=== PATIENT | male | born 1995 | race African-American/Black ===

== ENCOUNTER 2024-10-05 18:16 | Emergency (ER) | payer MEDICAID, SELFPAY ==
[2024-10-05] VITALS (34 sets, daily range): BP systolic 160–193; BP diastolic 111–134; PULSE 101–110; RESP 18; TEMP 36.8; O2SAT 98–100
--- NOTE | ~2024-10-05 | XR_ITS ---
EXAMINATION: XR chest 2V DATE: 10/05/2024 19:41 INDICATION: Shortness of breath TECHNIQUE: PA and lateral views of the chest were obtained. COMPARISON: None FINDINGS: The lungs are clear with no focal airspace opacities, pulmonary edema, pleural effusion or pneumothor ax. The cardiomediastinal silhouette is normal. Visualized bones and soft tissues are unremarkable. IMPRESSION: 1. No acute cardiopulmonary disease. Reviewed, dictated and finalized at location A.
--- NOTE | 2024-10-05 18:21 | ED_ITS ---
HPI - Extremity Problem General Chief complaint: Extremity Problem,Nontraumatic Stated complaint: edema to feet Time Seen by Provider: 10/05/24 18:18 Source: patient Mode of arrival: ambulatory Limitations: no limitations History of Present Illness HPI Narrative: patient is a 29-year-old male with right neck pain and headache since starting nitroglycerin daily and recent CHF diagnosis due to hypertension. His EF on paperwork is 35%. No chest pain or shortness of breath. Elevated blood pressure since starting new hydralazine at a lower dose. He is having lower extremity swelling bilateral edema starting today. He is on Lasix. Patient is a chronic renal non dialysis patient. 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) Related Data Home Medications ?Medication ?Instructions ?Recorded ?Confirmed ?Last Taken ?Type aspirin 81 mg tablet,delayed 81 mg PO DAILY 10/05/24 10/05/24 History release (Adult Aspirin Regimen) furosemide 20 mg tablet (Lasix) 20 mg PO DAILY 10/05/24 10/05/24 History hydralazine 25 mg tablet 25 mg PO TID 10/05/24 10/05/24 History isosorbide dinitrate 10 mg tablet 10 mg PO TID 10/05/24 10/05/24 History Allergies Allergy/AdvReac Type Severity Reaction Status Date / Time No Known Allergies Allergy Verified 10/05/24 18:25 Review of Systems 2 Review of Systems: All systems reviewed & are unremarkable except as noted in HPI and below Constitutional: Constitutional: Reports no additional constitutional complaints Eyes: Eyes: Reports no additional eye complaints ENT: Reports system reviewed and no additional complaints, except as documented Cardiovascular: Cardiovascular: Reports no additional cardiovascular complaints Respiratory: Respiratory: Reports no additional respiratory complaints Gastrointestinal: Gastrointestinal: Reports no additional gastrointestinal complaints Genitourinary: Genitourinary: Reports no additional male genitourinary complaints Musculoskeletal: Musculoskeletal: Reports no additional musculoskeletal complaints Integumentary/Breasts: Skin/Breast: Reports system reviewed and no additional complaints, except as docu Neurologic: Reports system reviewed and no additional complaints, except as documented Psychiatric: Psychiatric: Reports no additional psychiatric complaints Endocrine: Endocrine: Reports no additional endocrine complaints Hematologic/Lymphatic: Hematologic/Lymphatic: Reports no additional hematologic/lymphatic complaints Allergic/Immunologic: Allergic/Immunologic: Reports no additional allergic/immunologic complaints Exam 2 Const: General: healthy appearing Nutritional Appearance: well nourished Orientation/consciousness: patient oriented x3 HENMT: Head: normal to inspection Ears: external ears normal F merced/Nose/Sinus: Normal external nose present Eyes: Conjunctivae: conjunctivae normal Pupils: Equal, round and reactive pupils present EOM: EOMs intact bilaterally Neck: Neck: normal visual inspection Chest: Chest palpation & inspection: normal inspection of the chest Resp: Effort & Inspection: normal respiratory effort and not labored A uscultation: clear to auscultation bilaterally and no crackles Cardio: Rate: regular rate Rhythm: regular rhythm Heart sounds: no murmurs Other: there is a 3rd heart sound which could include S3 or P2 split GI: Inspection: non-distended GI Palp: Yes Soft to palpation and No Tenderness to palpation present (GI) Auscultation: normal bowel sounds : General: Yes bladder normal to palpation Back/Spine/Pelvis: Back: no CVA tenderness Skin: General skin exam: normal color Rashes: no rashes Wounds: no wounds Neuro: General: patient oriented x3, moves all extremities, no meningeal signs, no focal motor deficits and CN's II-XI intact bilaterally Cranial nerves: Yes Nystagmus not present Speech: normal speech Gait exam (Neuro): Normal gait present Extrem: General: normal to inspection and edema bilateral Psych: Mental Status: mental status grossly normal Affect: normal affect Attitude: cooperative Course Vital Signs Vital signs: Vital Signs Temperature 36.8 C 10/05/24 18:16 Pulse Rate 110 H 10/05/24 18:16 Respiratory Rate 18 10/05/24 18:16 Blood Pressure 189/134 H 10/05/24 18:16 Pulse Oximetry 98 10/05/24 18:16 Oxygen Delivery Room Air 10/05/24 18:16 Temperature 36.8 C 10/05/24 18:16 Pulse Rate 101 H 10/05/24 19:37 Respiratory Rate 18 10/05/24 19:37 Blood Pressure 193/119 H 10/05/24 19:37 Pulse Oximetry 99 10/05/24 19:37 Oxygen Delivery Room Air 10/05/24 19:37 MDM - Extremity (Nontraumatic) MDM Narrative Medical decision making narrative: patient is a 29-year-old male with new onset CHF in the past week at a different facility and was started on new medication. He is here with a right neck and head pain for the past week after starting nitro as well as lower extremity edema of the ankle starting today. We will do a cardiac workup at this time. after treating his blood pressure, his headache and neck pain have decreased. His elevated values are better than his epic chart findings from his recent hospitalization and they are trending downward comparative today. EKG was also compared and it is exactly the same from last week. Medical Records Attestation: I reviewed the patient's medical records. Medical records narrative: Patient has is my chart on [facility] from hospitalization which shows a normal stress test with EF 32% as well as echocardiogram with similar findings, troponin was more elevated than today, BNP was more elevated than today, renal function was more elevated than today and chest x-ray showed edema as today does not show edema in the lungs. EKG compared looks exactly the same. Lab Data Attestation: I reviewed the patient's lab results. 10/05/24 19:15 10/05/24 19:15 Labs: Lab Results 10/05/24 10/05/24 Range/Units 19:15 21:32 WBC 5.4 (4.8-10.8) K/mm3 RBC 4.61 L (4.70-6.10) M/mm3 Hgb 13.9 L (14.0-18.0) g/dL Hct 40.4 (40.0-54.0) % MCV 87.6 (78.0-102.0) fL MCH 30.2 (27.0-31.0) pg MCHC 34.4 (32-36) g/dL RDW 12.8 (11.6-14.4) % Plt Count 349 (150-420) K/mm3 MPV 9.2 (8.7-11.0) fl Immature Gran % (Auto) 0.2 H (0.0-0.0) % Neut % (Auto) 56.2 (50.0-70.0) % Lymph % (Auto) 33.3 (18.0-42.0) % Payne % (Auto) 7.4 (2.0-11.0) % Eos % (Auto) 2.0 (1.0-6.0) % Baso % (Auto) 0.9 (0.0-1.0) % Lymph # (Auto) 1.81 (1.10-4.50) K/mm3 Payne # (Auto) 0.40 (0.10-0.90) K/mm3 Eos # (Auto) 0.11 (0.02-0.50) K/mm3 Baso # (Auto) 0.05 (0.00-0.10) K/mm3 Abs Immat Gran (auto) 0.01 H (0.00-0.00) K/mm3 Absolute Neuts (auto) 3.05 (1.70-7.20) K/mm3 Absolute Nucleated RBC 0.00 (0.00-0.00) K/mm3 Nucleated RBC % 0.0 (0-0.0) % Sodium 138 (137-145) mmol/L Potassium 4.1 (3.4-5.0) mmol/L Chloride 100 (98-107) mmol/L Carbon Dioxide 31 H (22-30) mmol/L Anion Gap 7 (4-12) mmol/L BUN 24 H (9-20) mg/dL Creatinine 1.93 H (0.7-1.3) mg/dL Estim Creat Clear Calc 48 ml/min Estimated GFR 41 L (59 - ) Glucose 84 (65-110) mg/dL Calculated Osmolality 289 (285-295) mOsm/kg Calcium 8.9 (8.4-10.2) mg/dL Total Bilirubin 0.5 (0.2-1.3) mg/dL AST 41 (17-59) U/L ALT 25 (6-50) U/L Alkaline Phosphatase 105 (38-126) U/L Troponin I 1.480 H* 1.540 H* (0.000-0.034) ng/mL NT-Pro-B Natriuret Pep 848 H (19.9-100) pg/mL Total Protein 6.9 (6.3-8.2) g/dL Albumin 4.2 (3.5-5.1) g/dL Imaging Data Attestation: I personally reviewed and interpreted this imaging study as follows: Radiologist's impression: chest x-ray is negative for acute process ECG Data EKG #1: Attestation EKG: I personally reviewed and interpreted this ECG as follows: ECG completion date: 10/05/24 ECG completion time: 22:15 Prior ECG tracings: available for review ( no changes) Interpretation: patient has left ventricular hypertrophy seen with deep R and S; comparison to old EKG on his epic chart is exactly the same findings EKG Interpretation: normal rate, sinus rhythm, no ectopy, non-specific ST changes, widened QRS, normal QT and left axis Discharge Plan Discharge Clinical Impression: Hypertensive urgency, Elevated troponin Acute exacerbation of CHF (congestive heart failure) Qualifiers: Heart failure type: unspecified Qualified Code(s): I50.9 - Heart failure, unspecified CKD (chronic kidney disease) Qualifiers: Chronic kidney disease stage: unspecified stage Qualified Code(s): N18.9 - Chronic kidney disease, unspecified Patient Disposition: Home Condition: Stable Instructions: Heart Failure (ED), Hypertension (ED), Antibiotic Form Additional Instructions: please increase Lasix to 40 mg daily by taking 2 tablets of the 20 mg for 3 days and then back to the 1 tablet daily of 20 mg. Please increase your hydralazine to 2 tablets which will make 50 mg 3 times a day. Please see the doctor as soon as possible for follow-up and keep a blood pressure log. Patient Language: Czech Prescriptions: No Action furosemide [Lasix] 20 mg tablet 20 mg PO DAILY aspirin [Adult Aspirin Regimen] 81 mg tablet,delayed release (DR/EC) 81 mg PO DAILY hydralazine 25 mg tablet 25 mg PO TID isosorbide dinitrate 10 mg tablet 10 mg PO TID Rx Instructions: allow nitrate-free interval of 12-14 hrs per 24-hr period Follow-up/Referrals: UNKNOWN,DOCTOR [Primary Care Provider] - Time of Disposition: 23:02
--- NOTE | 2024-10-05 18:52 | ECG_ITS ---
Test Date: 2024-10-05 19:42:49 Measurements Intervals [place] Rate: 96 P: 50 VA: 161 QRS: -37 QRSD: 95 T: 84 QT: 349 QTc: 443 Interpretive Statements SINUS RHYTHM RIGHT ATRIAL ENLARGEMENT [0.3mV P-WAVE] LEFT ATRIAL ENLARGEMENT [-0.15mV P-WAVE IN V1/V2] LEFT AXIS DEVIATION [QRS AXIS < -30] LEFT VENTRICULAR HYPERTROPHY AND ST-T CHANGE [VOLTAGE CRITERIA PLUS ST/T ABNORMALITY]; CAN NOT R/O ISCHEMIA No previous ECG available for comparison Electronically Signed On 10-06-2024 16:10:26 CDT by Gautam Humphrey M.D.
--- OUTSIDE RECORDS SUMMARY | 2024-10-05 19:11 | XMS_ITS | Clinical Summary ---
Author Organization [facility] em Facility Address [address] [place] [address] Care Team Providers Care Wood Room Hand Name Role Phone Unavailable Primary Care Provider Unavailabl e Social History Tobacco Use Types Packs/Day Years Used Date Smoking Tobacco: Never Assessed Sex and Gender Information Value Date Recorded Sex Assigned at Not on file Legal Sex Male 3:36 PM EDT Gender Identity Not on file Sexual Orientation Not on file Plan of Treatment Upcoming Encounters Date Type Department Care Team ([facility] st Contact Info) Description 01/04/2025 9:00 AM EDT Office Visit [facility] Cardiology [address] [place] [address] Aron Martinez MD [address] [place] [address] Health Maintenance Due Date Last Done Comments HIV Screening 1993 Hepatitis C Screening 1993 MMR Vaccines (1 of 1 - Stand ericka series) 1994 DTaP,Tdap,and Td Vaccines (1 - Tdap) 2000 Depression Screening 2005 Varicella Vaccines (1 of 2 - 13+ 2-dose series) 2006 Hepatitis B Vaccines (1 of 3 - 19+ 3-dose series) 2012 COVID-19 Vaccine ( - 2023-2 5 season) 2023 Influenza Vaccine (#1) 2024 RSV Vaccines (1 - 1-dose 75+ series) 2068 HIB Vaccines Aged Out No longer eligi ble based on patient's age to complete this topic HPV Vaccines Aged Out No longer eligi ble based on patient's age to complete this topic Hepatitis A Vaccines Aged Out No long er eligible based on patient's age to complete this topic IPV (Polio) Vaccines Aged Out No long er eligible based on patient's age to complete this topic Meningococcal Vaccine Aged Out No vicente stefani eligible based on patient's age to complete this topic Pneumococcal Vaccine: Pediat rics (0 to 5 Years) and At-Risk Patients (6 to 49 Years) Aged Out No longer eligible b ased on patient's age to complete this topic
[2024-10-05 19:20] LABS: Hematocrit 40.4 % (40.0-54.0); Hemoglobin 13.9 g/dL (14.0-18.0); Immature Granulocyte Percent A 0.2 % (0.0-0.0); Lymphocytes Absolute Auto 1.81 K/mm3 (1.10-4.50); Mean Corpuscular HGB Conc 34.4 g/dL (32-36); Mean Corpuscular Hemoglobin 30.2 pg (27.0-31.0); Mean Corpuscular Volume 87.6 fL (78.0-102.0); Nucleated Red Blood Cells Absolute Auto 0.00 K/mm3 (0.00-0.00); Nucleated Red Blood Cells Perc 0.0 % (0-0.0); Platelet Count Result 349 K/mm3 (150-420); Red Blood Count 4.61 M/mm3 (4.70-6.10); White Blood Count 5.4 K/mm3 (4.8-10.8)
[2024-10-05 19:31] LABS: Alanine Aminotransferase 25 U/L (6-50); Albumin Level 4.2 g/dL (3.5-5.1); Alkaline Phosphatase 105 U/L (38-126); Anion Gap 7 mmol/L (4-12); Aspartate Amino Transferase 41 U/L (17-59); Bilirubin,Total 0.5 mg/dL (0.2-1.3); Blood Urea Nitrogen 24 mg/dL (9-20); Calcium 8.9 mg/dL (8.4-10.2); Carbon Dioxide 31 mmol/L (22-30); Chloride 100 mmol/L (98-107); Estimated CRCL calculation 48 ml/min; Estimated Glomerular Filt Rate 41; Glucose 84 mg/dL (65-110); Osmolality Calculated 289 mOsm/kg (285-295); Potassium 4.1 mmol/L (3.4-5.0); Sodium 138 mmol/L (137-145); Total Protein 6.9 g/dL (6.3-8.2)
--- NOTE | 2024-10-05 19:32 | PC.NURSE ---
PATIENT HAS RETURNED FROM IMAGING VIA WHEELCHAIR. CURRENTLY IN THE BATHROOM
--- NOTE | 2024-10-05 19:36 | PC.NURSE ---
JOSE CEJA, AT THE BEDSIDE DOING EKG
--- NOTE | 2024-10-05 19:37 | PC.NURSE ---
DR MABRY BEING NOTIFIED OF [facility] BLOOD PRESSURE
[2024-10-05 19:43] LABS: NT Pro B Type Natriuretic Pept 848 pg/mL (19.9-100)
[2024-10-05 19:46] LABS: Troponin I 1.480 ng/mL (0.000-0.034)
--- NOTE | 2024-10-05 20:30 | PC.NURSE ---
Patient accessed my chart for ED and inpatient information from [facility] in [place]. ERP was able to see reports and values of patients information, with patient permission. Of which, all values have decreased since time of inpatient admission.
[2024-10-05] MEDS: FUROSEMIDE INJ 20 MG/2 ML VIAL 10 MG IV PUSH (21:39)
[2024-10-05 22:14] LABS: Troponin I 1.540 ng/mL (0.000-0.034)
[2024-10-06] VITALS: BP 167/111; PULSE 100; RESP 20; O2SAT 99
== END 2024-10-06 00:05 | disposition home or self-care (01) ==
PROVIDERS: Emergency Provider Emergency Medicine
DX: I16.0 Hypertensive urgency (principal); I13.0 Hypertensive heart and chronic kidney disease with heart failure and stage 1 through stage 4 chronic kidney disease, or unspecified chronic kidney disease; I50.9 Heart failure, unspecified; N18.9 Chronic kidney disease, unspecified
CPT/HCPCS: 36415; 71046; 80053; 83880; 84484; 85025; 93005; 96374; 96375; 96376; 99284; A9270; J0360; J1938